=== PATIENT | female | born 1990 | race Caucasian/White ===

== ENCOUNTER 2022-03-03 17:36 | Observation (INO) | END 2022-03-03 18:15 | disposition home or self-care (01) | LOC: 1NENULAB | PROVIDERS: ADMIT Obstetrics & Gynecology; ATTEND Obstetrics & Gynecology ==

== ENCOUNTER 2022-03-16 06:17 | Inpatient (IN) ==
[2022-03-16] MEDS ORDERED: Famotidine 20 MG/2 ML VIAL IVP PRN (07:19)
[2022-03-16] MEDS ORDERED: Metoclopramide 10 MG/2 ML VIAL IVP PRN (07:19)
[2022-03-16] MEDS ORDERED: Naloxone 0.4 MG/ML INJ IVP PRN (07:19)
[2022-03-16] MEDS ORDERED: Oxytocin 30 UNIT/503 ML BAG IVC SCH ×2 (07:30→21:00)
[2022-03-16] MEDS ORDERED: Ringers Solution, Lactated 1,000 ML IVC SCH (07:30)
[2022-03-16 08:16] LABS: White Blood Count 11.4 K/mcL (4.3-11.1)
[2022-03-16 08:17] LABS: Basophils % 0.3 %; Eosinophils # 0.1 K/mcL (0.0-0.6); Eosinophils % 0.7 %; Hemoglobin 11.3 g/dL (11.5-15.4); Immature Granulocytes % 0.5 % (0-4); Lymphocytes # 2.4 K/mcL (0.6-4.6); Lymphocytes % 21.3 %; Mean Corpuscular HGB Conc 34.2 g/dL (31.6-35.5); Mean Corpuscular Hemoglobin 33.5 pg (28.0-33.3); Mean Corpuscular Volume 97.9 fL (83.0-100.0); Mean Platelet Volume 12.6 fL (9.4-12.4); Monocytes # 0.6 K/mcL (0.0-1.3); Monocytes % 5.1 %; Neutrophils # 8.2 K/mcL (1.6-8.9); Platelet Count 204 K/mcL (140-400); Red Blood Count 3.37 M/mcL (3.82-4.97); Red Cell Distribution Width 13.2 % (11.5-14.5); Segmented Neutrophils % 72.1 %
[2022-03-16 08:21] LABS: Influenza A PCR Negative (Negative); Influenza B PCR Negative (Negative); Resp. Syncytial Virus PCR Negative (Negative); SARS-CoV-2 by PCR (In House) Negative (Negative)
[2022-03-16] MEDS ORDERED: EPHEDrine 50 MG/ML VIAL IVP PRN (09:12)
[2022-03-16] MEDS ORDERED: Epidural Premix (fent/bupiv) 110 ML EP SCH (09:15)
[2022-03-16 10:21] LABS: Amphetamine Screen,Urine Negative ng/mL (Cutoff=1000); Barbiturate Screen,Urine Negative ng/mL (Cutoff=200); Benzodiazepines Screen,Urine Negative ng/mL (Cutoff=200); Cannabinoid Screen,Urine Negative ng/mL (Cutoff = 50); Cocaine Screen,Urine Negative ng/mL (Cutoff= 300); Opiate Screen,Urine Negative ng/mL (Cutoff=300); Phencyclidine Screen,Urine Negative ng/mL (Cutoff=25)
[2022-03-16] MEDS ORDERED: Lanolin 7 G OINT...G. TP PRN (20:58)
[2022-03-16] MEDS ORDERED: Ondansetron ODT 4 MG TAB.RAPDIS SL PRN (20:58)
[2022-03-16] MEDS ORDERED: Benzocaine/Menthol 56 GM AEROSOL SPRAY TP PRN (20:58)
[2022-03-16] MEDS ORDERED: Rho Immune Globulin 1,500 UNIT SYRINGE IM PRN (20:58)
[2022-03-16] MEDS ORDERED: Measles/Mumps/Rubella Vacc 0.5 ML VIAL SQ PRN (20:58)
[2022-03-16] MEDS ORDERED: OXYTOCIN/RINGERS LACTATE 10 UNIT/166.6 ML BAG IVC ONE (20:58)
[2022-03-16] MEDS: Acetaminophen 325 MG TABLET PO SCH (21:32)
[2022-03-17] MEDS: Ibuprofen 600 MG TABLET PO SCH ×2 (00:05→06:42)
[2022-03-17] MEDS: Acetaminophen 325 MG TABLET PO SCH ×2 (04:40→07:54)
[2022-03-17 07:16] VITALS: TEMP 97.9
[2022-03-17] MEDS: Prenatal Vit/FA 1 EACH TABLET PO SCH (07:51)
[2022-03-18] MEDS: Ibuprofen 600 MG TABLET PO SCH ×3 (00:16→08:13)
[2022-03-18] MEDS: Acetaminophen 325 MG TABLET PO SCH ×3 (00:17→08:16)
[2022-03-18 06:45] VITALS: BP 100/66; PULSE 60; O2SAT 97
[2022-03-18] MEDS: Prenatal Vit/FA 1 EACH TABLET PO SCH (08:12)
== END 2022-03-18 13:30 | disposition home or self-care (01) | DRG 560 ==
LOC: 1NENULAB 06:17 → 1NENUOBS 20:16
PROVIDERS: ADMIT Obstetrics & Gynecology; ATTEND Obstetrics & Gynecology